=== PATIENT | male | born 1965 | race Caucasian/White ===

== ENCOUNTER 2017-06-09 03:07 | Emergency (ER) | payer MEDICAID ==
[~2017-06-09] VITALS: Ht 180.3 cm; Wt 70.3 kg
[2017-06-09] MEDS ORDERED: HYDROCODONE/APAP 10/325MG 1 EA TABLET PO ONE (03:30)
[2017-06-09] MEDS ORDERED: HYDROCODONE/APAP 10/325MG 1 EA TABLET ONE (03:33)
--- NOTE | 2017-06-09 03:44 | NUR ---
PT SIGNED AMA AFTER RECEIVING NORCO 10/325 X2 PO. PT HAS LEFT THE HOSPITAL
[2017-06-09 03:50] VITALS: BP 138/68
== END 2017-06-09 03:52 | disposition left against medical advice (07) ==
LOC: ER 03:10
DX: G89.4 Chronic pain syndrome (principal); R52 Pain, unspecified; Z76.5 Malingerer [conscious simulation]; B19.20 Unspecified viral hepatitis C without hepatic coma; Z88.0 Allergy status to penicillin
CPT/HCPCS: 99282; A4606; Z7610